=== PATIENT | male | born 1985 | race Hispanic/Latino ===

== ENCOUNTER → 2019-08-29 | Outpatient (CLI) | payer OTHER ==
--- NOTE | 2019-08-29 10:58 | Diagnostic Imaging Report ---
Exam: Testicular ultrasound. Clinical History: Testicular pain Findings: Sonographic evaluation of the testicles. Both testes are normal in echogenicity and size without intratesticular mass. Normal symmetric blood flow without evidence of testicular torsion. Right: The right testicle measures 4.0 x 2.1 x 3.0 cm and appears unremarkable. The right epididymis measures 1.0 x 0.9 x 0.8 cm. Small right hydrocele. No varicocele. Left: The left testicle measures 4.2 x 2.0 x 3.1 cm and appears unremarkable. The left epididymis measures 1.1 x 0.9 x 0.8 cm. Small left hydrocele. No varicocele. Impression: No testicular torsion or intratesticular mass. Small bilateral hydrocele. Signed by: Cass Vallejo MD on 08/29/2019 10:55 AM
== END ==
LOC: US 10:02
PROVIDERS: ATTEND Family Medicine
DX: N50.812 Left testicular pain (principal); N50.811 Right testicular pain; N43.3 Hydrocele, unspecified
CPT/HCPCS: 76870; 93976